=== PATIENT | female | born 1945 | race Caucasian/White ===

== ENCOUNTER 2017-04-21 10:19 | Inpatient (IN) ==
--- NOTE | 2017-04-21 07:30 | Discharge Summary ---
Date of Encounter: 04/23/17 Time of Encounter: 06:47 - Discharge Diagnosis (1) Arthritis of right knee Priority: Primary Status: Chronic (2) Lung nodule Priority: Secondary Status: Chronic (3) Status post total right knee replacement Priority: Primary Status: Acute (4) Hypertension Priority: Secondary Status: Chronic Qualifiers: Hypertension type: unspecified secondary hypertension Qualified Code(s): I15.9 - Secondary hypertension, unspecified; I15 - Secondary hypertension (5) Hyperlipidemia Priority: Secondary Status: Chronic Qualifiers: Hyperlipidemia type: unspecified Qualified Code(s): E78.5 - Hyperlipidemia , unspecified (6) COPD (chronic obstructive pulmonary disease) Priority: Secondary Status: Chronic Qualifiers: COPD type: unspecified COPD Qualified Code(s): J44.9 - Chronic obstructive pulmonary disease, unspecified (7) TIA (transient ischemic attack) Priority: Secondary Status: Chronic Qualifiers: Transient cerebral ischemia type: unspecified Qualified Code(s): G45.9 - Transient cerebral ischemic attack, unspecified (8) CVA (cerebral vascular accident) Priority: Secondary Status: Chronic Qualifiers: CVA mechanism: unspecified Qualified Code(s): I63.9 - Cerebral infarction, unspecified - Discharge Medications Home Medications: Atorvastatin [Lipitor] 20 mg PO HS 01/07/15 [History] Aspirin [Adult Low Dose Aspirin EC] 81 mg PO DAILY 04/12/15 [History] Amlodipine Besylate/Benazepril [Lotrel 5-40 mg Capsule] 1 cap PO DAILY 04/21/17 [History] Aspirin Enteric Coated [Aspirin EC] 325 mg PO BID #20 tablet. 04/21/17 [Rx] OxyCODONE Immed Rel [Roxicodone 5 MG] 5 mg PO Q4HR PRN #24 tablet 04/21/17 [Rx] Potassium Chloride [Klor-Con 10] 10 meq PO Q48H 04/21/17 [History] Allergies/Adverse Reactions: 3 Allergy/AdvReac Type Severity Reaction Status Date / Time No Known Allergies Allergy Verified 04/16/17 14:17 Primary care physician: Erin Arenas MD - Patient Status Disposition: Home Health Service Condition: Good Functional capacity at discharge: uses cane/walker Overall status at discharge: patient is progressing back to baseline - Discharge Instructions Follow Up With: Erin Arenas MD [Primary Care Provider] - - Hospital Course Hospital course: Ms. Chauhan is a 71 year old female Status post total knee replacement The patient had an uneventful postoperative course. They received antibiotics and physical therapy and were discharged in stable condition. There will follow -up in the office in 2 weeks. - Time Spent with Patient Total time spent providing and/or coordinating discharge services:
[2017-04-21] MEDS ORDERED: CeFAZolin Syr 2,000MG/20 ML 2,000 MG/20 ML SYRINGE IVPB ONE (10:36)
[2017-04-21] MEDS ORDERED: Albuterol 2.5 MG/3 ML NEBULIZER IH ONE (10:36)
[2017-04-21] MEDS ORDERED: Ringers Solution, Lactated 1,000 ML IVC SCH ×2 (10:45→16:49)
--- NOTE | 2017-04-21 11:38 | Anesthesia Evaluation PreOp ---
Date of Encounter: 04/21/17 Time of Encounter: 11:35 - Past History Planned Operation: R total knee arthroplasty Cardiac History: HTN, Hyperlipidemia Pulmonary History: COPD (mild) [employer] History: CVA, TIA Other Medical History: Denies Any Significant HX Anesthesia History: No Prior Anesthetic Complications, Past Anesthesia Alcohol Use: none Drug use: none Medications and Allergies Atorvastatin [Lipitor] 20 mg PO HS 01/07/15 [History] Aspirin [Adult Low Dose Aspirin EC] 81 mg PO DAILY 04/12/15 [History] Amlodipine Besylate/Benazepril [Lotrel 5-40 mg Capsule] 1 cap PO DAILY 04/21/17 [History] Aspirin Enteric Coated [Aspirin EC] 325 mg PO BID #20 tablet. 04/21/17 [Rx] OxyCODONE Immed Rel [Roxicodone 5 MG] 5 mg PO Q4HR PRN #24 tablet 04/21/17 [Rx] Potassium Chloride [Klor-Con 10] 10 meq PO Q48H 04/21/17 [History] 3 Allergy/AdvReac Type Severity Reaction Status Date / Time No Known Allergies Allergy Verified 04/16/17 14:17 - Meds/Allergy Pre-op Review Medications Reviewed: Yes Allergies Reviewed: Yes Beta Blockers on Current Med List: No Anesthesia Results - Labs Laboratory Tests 04/11/17 04/11/17 04/16/17 11:00 11:00 14:25 WBC 6.8 Hgb 13.6 Hct 40.4 Plt Count 221 PT 10.5 INR 1.0 APTT 27.8 Sodium 136 Potassium 3.7 Chloride 104 Carbon Dioxide 25 BUN 15 Creatinine 0.92 Glucose 169 H - Imaging EKG: report reviewed (SINUS RHYTHM LEFT VENTRICULAR HYPERTROPHY AND ST-T CHANGE Electronically Signed On 04-17-2017 7:43:59 EST by Driss Rosales DO) Anesthesia Exam Vital Signs/O2 Sat, Most Current Temp Pulse Resp BP Pulse Ox 98.3 F 81 18 151/71 96 04/21/17 10:48 04/21/17 10:48 04/21/17 10:48 04/21/17 10:48 04/21/17 10:48 Height: 1.7m Weight: 160lbs NPO (# of Hours): >8 - HEENT Pupil (Motor): Pupils equal, EOMI Mallampati: II Teeth: Edentulous Denture Type: Upper: Complete, Lower: Complete Oral Opening: Greater than 3 - [employer] LOC: Oriented [employer] Motor: Normal RUE, Normal LUE, Normal RLE, Normal LLE, Normal Face [employer] Sensory: Normal: RUE, LUE, RLE, LLE, Face - Cardiac Rhythm: Regular - Pulmonary Breath Sounds: bilateral Clear Respiratory Effort: Symmetrical Anesthesia Assess/Plan ASA Score: 3 Modified [place] Scale for Level of Consciousness: Cooperative, oriented, and tranquil Anesthetic Plan: General (r/b/a discussed, questions answered consent obtained) , Regional (R femoral nn and ipack block) Monitoring Plan: Standard Monitors Recovery Plan: PACU
--- NOTE | 2017-04-21 11:49 | History & Physical Report ---
Date of Encounter: 04/21/17 Time of Encounter: 11:48 24 Hour HP Update - Instructions Instructions: If the History and Physical is less than 30 days old and was completed prior to A.M. admission and or procedure and has NOT been updated on calendar day of procedure please complete this update prior to performing procedure. - Update Patient reports changes in Medical Condition: No Changes in examination, assessment, or condition: No Changes in Medication: No Preop tests/diagnostics Reviewed: Yes Surgery Remains Indicated: Yes Consent for Planned Operative Procedure(s) Verified: Yes - Pre-Operative Checklist Preoperative Checklist Indicated: No Prophylactic Antibiotic Ordered: Yes Is VTE Prophylaxis Indicated?: Yes
[2017-04-21] MEDS ORDERED: *HR* Propofol 200 MG/20 ML VIAL IVP ONE (13:00)
[2017-04-21] MEDS ORDERED: *HR* Midazolam HCl 2 MG/2 ML VIAL ONE (13:00)
[2017-04-21] MEDS ORDERED: *HR* FentaNYL (PF) 100 MCG/2 ML VIAL ONE (13:00)
[2017-04-21] MEDS ORDERED: Lidocaine -MPF 2% 2 ML VIAL ONE (13:01)
[2017-04-21] MEDS ORDERED: Bupivacaine/Clonidine Syringe 1 EACH SYRINGE ONE (13:59)
[2017-04-21] MEDS ORDERED: ROPIVACAINE HCL/PF 0.5% 30 ML VIAL ONE (13:59)
--- NOTE | 2017-04-21 14:41 | Anesthesia Procedures ---
Date of Encounter: 04/21/17 Time of Encounter: 14:30 Procedures: Anesthesia - Nerve Block Procedure Date: 04/21/17 Time: 14:30 Allergies/Adv Reactions: nka Pre-op Diagnosis: Right Knee Arthritis Surgical Procedure: Right TotalKnee Arthroplasty Checklist: Correct procedure Correct side: Right Blood Thinner: No Monitor Applied: EKG, BP, Pulse Oximetry Supplemental Oxygen via Nasal Cannula (L/min): 2 Sedation: Versed (mg): 2 Sedation: Fentanyl (mcg): 100 Indication: Post Op Analgesia Block Type: Femoral, Other (iPACK) Catheter placed: No Sterile Technique: Yes Ultrasound used: Yes Anatomy identified: Yes Visual spread of Local: Yes Neuro Stimulation: Yes Nerve Stimulator Range: >0.4 - 0.6 mA Blood on Needle Aspiration: No Smooth Injection of Local: Yes Pain with Injection of Local: Yes Prep: Chlorhexadine Needle: 22 x 50 mm Stimuplex (echogenic), 21 x 100 mm Stimuplex (echogenic) Local: 0.25% Bupivicaine w/Clonidine 20 mcg/cc (for iPACK block 20 ml), Ropivacaine (For FNB---30 ml) Volume (cc): 50 ml total Number of Attempts: 1 (1 attemtp for each block) Complications: None/effective block Vitals: vss
[2017-04-21] MEDS ORDERED: Dexamethasone 4 MG/ML VIAL ONE (14:53)
[2017-04-21] MEDS ORDERED: *HR* Morphine 10 MG/ML VIAL ONE (15:06)
[2017-04-21] MEDS ORDERED: *HR* Labetalol 20 MG/4 ML SYRINGE IVP PRN (15:12)
[2017-04-21] MEDS ORDERED: Ondansetron 4 MG/2 ML VIAL IVP ONE (15:12)
--- NOTE | 2017-04-21 15:38 | Orthopedic Operative Note ---
Date of procedure: 04/21/17 Pre-op diagnosis: Right knee arthritis Post-op diagnosis: same Procedure: Procedure: Right Total knee replacement Estimated blood loss: 200 cc Hardware: Metal and polyethylene replacement. Arthrex Femur: 4 Tibia: 4 PS insert: 12 Patella: 34 Exam Under anesthesia: Loss of full extension 30 degrees Procedural Notes: Grade 3 arthritic changes all 3 compartments. Operative procedure: The patient was brought to the operating room and placed on the operating room table. After general anesthesia was administered the operative knee was examined. Findings were noted in the exam under anesthesia. The operative extremity was prepped and draped in sterile surgical fashion. The patient received IV antibiotics prior to skin incision. A standard midline incision was made centered over the patella. The incision was made through the skin and subcutaneous tissue. A medial parapatellar tendon approach was performed. Care was taken to preserve tissue along the medial aspect of the patella. And to protect the patella tendon. The deep MCL was released off the medial tibia. The infra patella fat pad was excised. Knee was brought into flexion. Patient noted to have grade 3 arthritic changes all 3 compartments. The entry hole was made for the intramedullary femoral guide. The guide was seated in 6 degrees of valgus. Anterior cut was made followed by the distal cut. The ACL the PCL the medial and the lateral menisci were excised. The tibia was subluxed forward. The entry hole was made for the intramedullary tibial guide. Guide was seated to resect 2 mm off the more abnormal side. The knee was brought into flexion the distal femur was sized to a 4. The femoral guide was seated, the anterior cut was made followed by the posterior condylar cut, followed by the chamfer cuts. The finishing guide was seated the box cut was made and the lug holes were drilled. The tibia was sized, 24 the tibial tray was seated and prepared with the large drill followed by the fin cutter. Trial reduction revealed full extension no varus valgus instability with the appropriate 12 PS Traci. The patella was everted and cut was made at the level of the insertion of the quadriceps and patella tendon. The patella was sized 34 the guide was seated and the lug holes are drilled. Trial reduction revealed excellent patella tracking. All trial components were removed all bony surfaces were irrigated. The tibia was cemented first followed by the femur. 12 PS Traci was seated and the knee was brought into full extension. The patella was cemented and held in place with the patellar holding clamp. After the cement had hardened, the knee sat for 2 minutes with a Betadine saline solution. The knee was then irrigated out with 2 L of pulse irrigation. The extensor mechanism was closed with #2 FiberWire suture and #2 PDS suture. The subcutaneous tissue was then irrigated and closed deep with #1 PDS suture superficially with 0 PDS suture and skin was closed with zip tie. The patient was then placed in a sterile dressing and a postoperative brace extubated and transferred to recovery room in stable condition. Anesthesia: GETA Surgeon: Stefan Covarrubias Condition: stable Disposition: PACU
[2017-04-21] MEDS: *HR* HYDROmorphone (PF) 1 MG/ML SYRINGE IVP PRN ×4 (16:02→16:19)
[2017-04-21 16:06] LABS: Hematocrit 36.9 % (35.3-44.9); Hemoglobin 12.5 g/dL (11.5-15.4)
[2017-04-21] MEDS ORDERED: Acetaminophen IV 1,000 MG/100 ML INFUS..BTL IVPB ONE (16:21)
[2017-04-21] MEDS ORDERED: Acetaminophen IV 1,000 MG/100 ML INFUS..BTL ONE (16:22)
[2017-04-21] MEDS ORDERED: MOM Conc 10 ML UD.LIQ PO PRN (16:49)
[2017-04-21] MEDS ORDERED: Temazepam 15 MG CAPSULE PO PRN (16:49)
[2017-04-21] MEDS ORDERED: Naloxone 0.4 MG/ML INJ IVP PRN (16:49)
[2017-04-21] MEDS ORDERED: *HR* OxyCODONE Immed Rel 5 MG TABLET PO PRN (16:49)
[2017-04-21] MEDS ORDERED: Ondansetron 4 MG/2 ML VIAL IVP PRN (16:49)
[2017-04-21] MEDS ORDERED: Sennosides 8.6 MG TABLET PO PRN (16:49)
--- NOTE | 2017-04-21 16:53 | Anesthesia Evaluation Post Op ---
Date of Encounter: 04/21/17 Time of Encounter: 16:51 - Vital Signs Vital Signs: Vital Signs/O2 Sat, Most Current Temp Pulse Resp BP Pulse Ox 97.0 F L 86 16 145/72 96 04/21/17 16:16 04/21/17 16:35 04/21/17 16:35 04/21/17 16:35 04/21/17 16:35 - Lungs Lungs: Clear Ascult./Percussion - Airway Airway: Non-obstructed - Cardiovascular Regular Rate - Mental Status Mental Status: Alert & Oriented, Answers Appropriately - Pain Pain Scale used: Numeric (1 - 10) (tolerable) - Nausea Vomiting Nausea Vomiting: Not Present - Hydration Hydration: NPO - Discharge PostOp Status: Transfer Patient to floor Attestation: I have assessed this patient and find they meet discharge criteria.
[2017-04-21 17:07] LABS: Hematocrit 38.7 % (35.3-44.9); Hemoglobin 13.1 g/dL (11.5-15.4)
[2017-04-21] MEDS ORDERED: *HR* Enoxaparin 30 MG/0.3 ML SYRINGE SQ SCH (18:00)
[2017-04-21] MEDS: *HR* Enoxaparin 30 MG/0.3 ML SYRINGE SQ SCH (19:43)
[2017-04-21] MEDS: CeFAZolin Premix DUPLEX 2,000 MG/50 ML BAG IVPB SCH (19:43)
[2017-04-21] MEDS: *HR* OxyCODONE Immed Rel 5 MG TABLET PO PRN (21:31)
[2017-04-22 01:15] LABS: Hematocrit 37.4 % (35.3-44.9); Hemoglobin 12.7 g/dL (11.5-15.4)
[2017-04-22 01:30] LABS: BUN/Creatinine Ratio 20 (6-26); Blood Urea Nitrogen 19 mg/dL (7-20); Calcium 9.3 mg/dL (8.6-10.8); Carbon Dioxide 22 mEq/L (19-29); Chloride 108 mEq/L (98-109); Glucose 222 mg/dL (70-99); Osmolality,Calculated 291 (280-300); Potassium 4.4 mEq/L (3.5-4.5); Sodium 136 mEq/L (136-145); eGFR For African Americans > 60 (> 60); eGFR For Non-African Americans 58 (> 60)
[2017-04-22] MEDS: CeFAZolin Premix DUPLEX 2,000 MG/50 ML BAG IVPB SCH (02:11)
[2017-04-22] MEDS: *HR* OxyCODONE Immed Rel 5 MG TABLET PO PRN ×3 (02:12→20:38)
[2017-04-22] MEDS: *HR* HYDROmorphone (PF) 1 MG/ML SYRINGE IVP PRN ×3 (04:23→22:33)
[2017-04-22] MEDS: *HR* Enoxaparin 30 MG/0.3 ML SYRINGE SQ SCH ×2 (04:23→18:15)
[2017-04-22] MEDS: Lisinopril 20 MG TABLET PO SCH (08:46)
[2017-04-22] MEDS: Aspirin Enteric Coated 81 MG Tablet PO SCH (08:46)
[2017-04-22] MEDS: amLODIPine 5 MG TABLET PO SCH (08:46)
--- NOTE | 2017-04-22 08:56 | Orthopedics Progress Note ---
Date of Encounter: 04/22/17 Time of Encounter: 08:55 Subjective Interval history: Patient was seen this morning doing well without complaints. Afebrile vital signs stable. Operative extremity: Neurovascularly intact Dressing clean dry and intact Calves nontender Assessment and plan: Continue with postoperative care Objective Vital signs: Vital Signs Temp Pulse Resp BP Pulse Ox 04/22/17 06:44 98.5 F 74 18 135/78 97 04/21/17 23:49 97.5 F L 78 16 122/68 96 04/21/17 18:43 97.8 F 87 15 116/62 93 04/21/17 17:53 97.8 F 79 16 129/79 93 04/21/17 17:15 97.8 F 76 15 149/77 94 04/21/17 16:50 97.7 F 82 16 158/81 96 04/21/17 16:35 86 16 145/72 96 04/21/17 16:25 73 16 134/67 92 04/21/17 16:16 97.0 F L 81 18 142/70 93 04/21/17 16:06 59 20 143/77 97 04/21/17 15:56 67 16 140/69 97 04/21/17 15:46 97.0 F L 59 18 128/67 95 04/21/17 14:29 76 16 120/66 98 04/21/17 14:17 84 16 141/83 96 04/21/17 10:48 98.3 F 81 18 151/71 96 Intake and Output 04/21/17 04/22/17 04/22/17 23:59 07:59 15:59 Intake Total 150 / 150 240 / 240 Output Total 0 / 0 300 / 300 Balance 150 / 150 -300 / -300 240 / 240 Intake: IV Fluids 150 / 150 Ofirmev 1,000 mg/100 ml 1,000 100 / 100 mg In 100 ml @ 400 mls/hr IVPB ONCE ONE Rx#:[id number] Ancef Premix DUPLEX 2,000 mg In 50 / 50 50 ml @ 100 mls/hr IVPB Q8HR TEREAS Rx#:[id number] Oral 0 / 0 240 / 240 Output: Urine 0 / 0 200 / 200 Emesis 100 / 100 Other: Meal Breakfast Percent of Meal Consumed 85% # Voids 0 # Bowel Movements 0 Weight 78.925 kg - Labs CBC & BMP: 04/22/17 00:40 04/22/17 00:40 Labs: Abnormal lab results Est GFR (Non-Af Amer) 58 (> 60) L 04/22/17 00:40 Glucose 222 mg/dL (70-99) H 04/22/17 00:40 - VTE Documentation of Mechanical Device: Venous foot pump, device Consult Discharge Plan - Plan Referrals: Erin Arenas MD [Primary Care Provider] -
[2017-04-23] MEDS: *HR* HYDROmorphone (PF) 1 MG/ML SYRINGE IVP PRN ×4 (01:19→15:06)
[2017-04-23 04:41] LABS: Hematocrit 34.6 % (35.3-44.9); Hemoglobin 11.4 g/dL (11.5-15.4)
[2017-04-23 04:51] LABS: BUN/Creatinine Ratio 14 (6-26); Blood Urea Nitrogen 14 mg/dL (7-20); Calcium 9.2 mg/dL (8.6-10.8); Carbon Dioxide 26 mEq/L (19-29); Chloride 103 mEq/L (98-109); Glucose 285 mg/dL (70-99); Osmolality,Calculated 293 (280-300); Potassium 3.9 mEq/L (3.5-4.5); Sodium 136 mEq/L (136-145); eGFR For African Americans > 60 (> 60); eGFR For Non-African Americans 57 (> 60)
[2017-04-23] MEDS: *HR* Enoxaparin 30 MG/0.3 ML SYRINGE SQ SCH (05:19)
[2017-04-23] MEDS: *HR* OxyCODONE Immed Rel 5 MG TABLET PO PRN ×2 (05:23→09:25)
--- NOTE | 2017-04-23 06:49 | Orthopedics Progress Note ---
Date of Encounter: 04/23/17 Time of Encounter: 06:48 - Assessment and Plan (1) Arthritis of right knee Current Visit: No Status: Chronic (2) Lung nodule Current Visit: No Status: Chronic (3) Status post total right knee replacement Current Visit: No Status: Acute (4) Hypertension Current Visit: Yes Status: Chronic Qualifiers: Hypertension type: unspecified secondary hypertension Qualified Code(s): I15.9 - Secondary hypertension, unspecified; I15 - Secondary hypertension (5) Hyperlipidemia Current Visit: Yes Status: Chronic Qualifiers: Hyperlipidemia type: unspecified Qualified Code(s): E78.5 - Hyperlipidemia , unspecified (6) COPD (chronic obstructive pulmonary disease) Current Visit: Yes Status: Chronic Qualifiers: COPD type: unspecified COPD Qualified Code(s): J44.9 - Chronic obstructive pulmonary disease, unspecified (7) TIA (transient ischemic attack) Current Visit: Yes Status: Chronic Qualifiers: Transient cerebral ischemia type: unspecified Qualified Code(s): G45.9 - Transient cerebral ischemic attack, unspecified (8) CVA (cerebral vascular accident) Current Visit: Yes Status: Chronic Qualifiers: CVA mechanism: unspecified Qualified Code(s): I63.9 - Cerebral infarction, unspecified Subjective Interval history: Patient was seen this morning doing well without complaints. Afebrile vital signs stable. Operative extremity: Neurovascularly intact Dressing clean dry and intact Calves nontender Assessment and plan: Continue with postoperative care Hematocrit 33 discharged today Objective Vital signs: Vital Signs Temp Pulse Resp BP Pulse Ox 04/23/17 00:00 98.9 F 91 19 146/76 94 04/22/17 20:04 99.0 F 90 18 154/72 93 04/22/17 14:55 98.8 F 88 16 139/69 95 04/22/17 11:06 98.1 F 77 18 116/62 96 04/22/17 10:14 74 18 135/78 97 Intake and Output 04/22/17 04/22/17 04/23/17 15:59 23:59 07:59 Intake Total 600 / 600 240 / 240 Output Total 250 / 250 750 / 750 Balance 600 / 600 -10 / -10 -750 / -750 Intake: Oral 600 / 600 240 / 240 Output: Urine 250 / 250 750 / 750 Other: Meal Lunch Dinner Percent of Meal Consumed 50% 25% # Bowel Movements 0 Weight 79.1 kg Patient Weight 04/23/17 23:59 Weight 79.1 kg - Labs CBC & BMP: 04/23/17 03:56 04/23/17 03:56 Labs: Abnormal lab results Hgb 11.4 g/dL (11.5-15.4) L 04/23/17 03:56 Hct 34.6 % (35.3-44.9) L 04/23/17 03:56 Est GFR (Non-Af Amer) 57 (> 60) L 04/23/17 03:56 Glucose 285 mg/dL (70-99) H 04/23/17 03:56 - VTE Documentation of Mechanical Device: Venous foot pump, device Consult Discharge Plan - Plan Referrals: Erin Arenas MD [Primary Care Provider] -
[2017-04-23] MEDS: Lisinopril 20 MG TABLET PO SCH (07:42)
[2017-04-23] MEDS: Aspirin Enteric Coated 81 MG Tablet PO SCH (07:42)
[2017-04-23] MEDS: amLODIPine 5 MG TABLET PO SCH (07:43)
[2017-04-23 15:04] VITALS: BP 144/76
--- NOTE | 2017-04-25 13:10 | Physician Discharge Referral ---
Home Health/Hosp Referral Info Attending Provider: Dr. Covarrubias - Diagnosis (1) Status post total right knee replacement Priority: Primary Status: Acute (2) Arthritis of right knee Priority: Secondary Status: Chronic (3) COPD (chronic obstructive pulmonary disease) Priority: Secondary Status: Chronic (4) CVA (cerebral vascular accident) Priority: Secondary Status: Chronic (5) Hyperlipidemia Priority: Secondary Status: Chronic (6) Hypertension Priority: Secondary Status: Chronic (7) Lung nodule Priority: Secondary Status: Chronic (8) TIA (transient ischemic attack) Priority: Secondary Status: Chronic - Respiratory Orders Smoking Cessation: Smoking cessation has been advised. For more information, call the [place] Tobacco Quit Line at 1-940-PMUO-NOW. - Dressing/Wound Care Site: right knee Type of Dressing/Treatments w/Frequency: Opsite placed. Keep dressing intact until first follow up appointment. If > 50% saturated, notify office, remove dressing and place appropriate dressing back in place. Dressing is water resistant, not water-proof. OK to shower, but do not get dressing wet. - Diet/Nutrition Diet/Nutrition Orders: Regular - Activity Activity Orders: Ambulate - Services Needed Following services are medically necessary services: Physical Therapy, Occupational Therapy - Transfer Medications Home Medications: Atorvastatin [Lipitor] 20 mg PO HS 01/07/15 [History] Aspirin [Adult Low Dose Aspirin EC] 81 mg PO DAILY 04/12/15 [History] Amlodipine Besylate/Benazepril [Lotrel 5-40 mg Capsule] 1 cap PO DAILY 04/21/17 [History] Aspirin Enteric Coated [Aspirin EC] 325 mg PO BID #20 tablet. 04/21/17 [Rx] OxyCODONE Immed Rel [Roxicodone 5 MG] 5 mg PO Q4HR PRN #24 tablet 04/21/17 [Rx] Potassium Chloride [Klor-Con 10] 10 meq PO Q48H 04/21/17 [History] Allergies/Adverse Reactions: 3 Allergy/AdvReac Type Severity Reaction Status Date / Time No Known Allergies Allergy Verified 04/16/17 14:17 Certification: Further, I certify that my clinical findings support that this patient is homebound (i.e. absences from home require considerable and taxing effort and are for medical reasons or mosque services or infrequently or short duration when for other reasons) because: Homebound Reason: Post-surgery restriction and or conditions limit ability to leave home Attestation: My signature below is to certify that this patient is under my care and that I, or nurse practitioner, or a physician assistant professor in family studies working with me, has a face-to- face encounter with this patient.
== END 2017-04-23 17:06 | disposition home health service (06) | DRG 470 ==
LOC: SAMDAY 10:19 → 3NENU 16:36
PROVIDERS: ADMIT Orthopaedic Surgery; ATTEND Orthopaedic Surgery